=== PATIENT | female | born 1950 | race Caucasian/White ===

== ENCOUNTER 2019-07-18 10:40 | Emergency (ER) | payer MEDICARE ==
[~2019-07-18] VITALS: Ht 152.4 cm; Wt 68.2 kg
[2019-07-18] MEDS ORDERED: OXYcodone/APAP 5/325MG TABLET ONE (11:25)
[2019-07-18] MEDS ORDERED: KETOROLAC 30 MG/1 ML ONE (11:25)
[2019-07-18] MEDS ORDERED: OXYcodone/APAP 5/325MG TABLET PO ONE (11:30)
[2019-07-18] MEDS ORDERED: KETOROLAC 30 MG/1 ML IM ONE ×2 (11:30)
--- NOTE | 2019-07-18 11:43 | NUR ---
pt to room 30 per pedis. pt was attempting to get up from an air mattress, and felt and heard "crunch" noises in her right shoulder. pt was afraid it was out of place. pt is a/o x3. pt given po and im medications for pain. PA in to assess patient.
[2019-07-18] MEDS ORDERED: DIAZEPAM 5 MG TABLET ONE (12:57)
[2019-07-18] MEDS ORDERED: DIAZEPAM 5 MG TABLET PO ONE (13:00)
[2019-07-18 13:01] VITALS: BP 139/88
--- NOTE | 2019-07-18 13:03 | NUR ---
PO MEDS GIVEN FOR CONTINUED PAIN. DISCHARGE INSTRUCTIONS GIVEN TO PATIENT. PT VERBALIZES UNDERSTANDING OF ALL INSTRUCTIONS AND FOLLOW UP. SLING IN PLACE, PT OUT PER WHEELCHAIR TO WAIT FOR FRIEND TO PICK HER UP,
== END 2019-07-18 13:05 | disposition home or self-care (01) ==
LOC: ED 11:47
DX: S43.401A Unspecified sprain of right shoulder joint, initial encounter (principal); F17.200 Nicotine dependence, unspecified, uncomplicated; X58.XXXA Exposure to other specified factors, initial encounter; Y93.89 Activity, other specified; Y92.009 Unspecified place in unspecified non-institutional (private) residence as the place of occurrence of the external cause; Y99.8 Other external cause status
CPT/HCPCS: 73030; 96372; 99283; J1885

== ENCOUNTER 2019-12-05 19:25 | Emergency (ER) | payer MEDICARE ==
[~2019-12-05] VITALS: Ht 152.4 cm; Wt 66.0 kg
[~2019-12-05 19:25] MED LIST: AMOX1TAB64 PO; ATOR40TA78 PO; FURO40TA6 PO; LEVO50TA PO; LORA-446 PO; METO25TA35 PO; ONDA-89 PO; OXYC5CAP2 PO; POTA8CAP20 PO
--- NOTE | 2019-12-05 19:56 | NUR ---
Pt presents to ed c/o nausea and diffuse abd pain. States colonoscopy 2 days ago and ama. "i couldnt stay, i had to take care of my dog." Pt educated on why this was a bad idea. States hematochezia and "i just cant seem to keep anything down either." Pt abd noted rounded and firm and tender to palpation. 2 Iv's established and blood drawn. All monitoring applied. VSS. at bedside for assessment.
[2019-12-05] MEDS ORDERED: HYDROmorphone 2 MG/ML, 1ML ONE (20:00)
[2019-12-05] MEDS ORDERED: HYDROmorphone 2 MG/ML, 1ML IVPush PRN (20:00)
[2019-12-05] MEDS ORDERED: ONDANSETRON 2MG/ML, 2ML ONE (20:00)
[2019-12-05] MEDS ORDERED: ONDANSETRON 2MG/ML, 2ML IVPush ONE (20:00)
[2019-12-05] MEDS ORDERED: SODIUM CHLORIDE 0.9% 1,000ML IVBOLUS ONE (20:00)
[2019-12-05 20:34] LABS: BASOPHILS # (AUTO) 0.07 x10^3/uL (0-0.1); BASOPHILS % (AUTO) 1 % (0-1); EOSINOPHILS # (AUTO) 0.09 x10^3/uL (0-0.4); EOSINOPHILS % (AUTO) 1 % (1-7); LYMPHOCYTES # (AUTO) 2.36 x10^3/uL (1-3.4); LYMPHOCYTES % (AUTO) 21 % (22-44); MD NO; MEAN CORPUSCULAR HEMOGLOBIN 29.4 pg (27.0-34.8); MEAN CORPUSCULAR HGB CONC 32.6 g/dL (32.4-35.8); MEAN CORPUSCULAR VOLUME 90.2 fL (80-100); MEAN PLATELET VOLUME 7.9 fL (7.4-10.4); MONOCYTES # (AUTO) 1.07 x10^3/uL (0.2-0.8); MONOCYTES % (AUTO) 9 % (2-9); NEUTROPHILS # (AUTO) 7.88 x10^3/uL (1.8-6.8); NEUTROPHILS % (AUTO) 69 % (42-75); PLATELET COUNT 414 x10^3/uL (130-400); RED BLOOD COUNT 4.69 x10^6/uL (3.82-5.3)
[2019-12-05 20:39] LABS: ALANINE AMINOTRANSFERASE 21 U/L (12-78); ALBUMIN 3.3 g/dL (3.4-5.0); ANION GAP 8 mmol/L (5-15); CHLORIDE 107 mmol/L (98-107); CREATININE 0.76 mg/dL (0.55-1.02); INTERNATIONAL NORMALIZED RATIO 0.96 (0.93-1.1); PROTHROMBIN TIME 9.9 Seconds (9.6-11.5)
[2019-12-05 20:42] LABS: ALKALINE PHOSPHATASE 123 U/L (45-117); BILIRUBIN,TOTAL 0.4 mg/dL (0.2-1.0); TOTAL PROTEIN 8.3 g/dL (6.4-8.2)
[2019-12-05] MEDS ORDERED: OMNIPAQUE 350 MG/ML, 100ML BOTTLE ONE (20:56)
[2019-12-05 21:04] VITALS: BP 129/96
--- NOTE | 2019-12-05 21:05 | NUR ---
PT amb w/ steady gait to rr. Back from ct. Awaiting results.
--- NOTE | 2019-12-05 21:14 | NUR ---
consulted on potential for cultures pt abx. No new orders. Will hang abx per jun.
[2019-12-05] MEDS ORDERED: METRONIDAZOLE PMX 500MG/100ML 100 ML ONE (21:19)
[2019-12-05] MEDS ORDERED: METRONIDAZOLE PMX 500MG/100ML 100 ML IV ONE (21:30)
== END 2019-12-05 22:29 | disposition home or self-care (01) ==
LOC: ED 22:03
DX: K52.9 Noninfective gastroenteritis and colitis, unspecified (principal); R10.9 Unspecified abdominal pain; R11.0 Nausea; I10 Essential (primary) hypertension; E11.9 Type 2 diabetes mellitus without complications
CPT/HCPCS: 36415; 74177; 80053; 83690; 85025; 85610; 85730; 96361; 96365; 96375; 99285; J1170; J2405; J7030; Q9967